=== PATIENT | female | born 1965 | race Caucasian/White ===

== ENCOUNTER → 2025-03-19 18:57 | Outpatient (REF) | payer OTHER, SELFPAY | LOC: PAVMRI 18:57 | PROVIDERS: ATTENDING PHYSICIAN Family Medicine Sports Medicine; FAMILY PHYSICIAN Physician Assistant Medical | DX: M17.11 Unilateral primary osteoarthritis, right knee (principal); M25.561 Pain in right knee | CPT/HCPCS: 73721 ==